=== PATIENT | male | born 1970 | race Hispanic/Latino ===

== ENCOUNTER 2024-01-26 11:41 | Emergency (ER) | payer SELFPAY ==
[2024-01-26 11:44] VITALS: BP 153/95
[2024-01-26 12:18] VITALS: BMI 30.6
[2024-01-26 12:25] VITALS: BP 134/91
--- NOTE | 2024-01-26 12:30 | ED.GENMED ---
History of Present Illness
General
Chief Complaint: Headache
Time Seen by Provider: 01/26/24 12:29
History of Present Illness
History of Present Illness:
HPI: The patient presents with discomfort in his head. He at times describes it as electrical shock sensation in the bitemporal region. He has never had this before. This been ongoing for the last few weeks. He called an eye doctor at [place]
who told him to come to the Emergency Department for further evaluation. He does have some increased discomfort with palpation to the right oriental orthodox. He has no fevers or vision changes. He has no other symptoms.
EXAM:
GENERAL: Well appearing in no distress
HEENT: Moist oral mucosa
HEAD: There is some very mild tenderness to palpation at the right oriental orthodox region
CARDIOVASCULAR: No murmurs, normal heart rate, regular rhythm, No chest wall tenderness
PULMONARY: No respiratory distress, breath sounds are clear and equal
ABDOMEN: Soft with no peritoneal signs, no tenderness
NEUROLOGIC: Excellent strength all extremities, no coordination deficits, no field cuts on exam, no sensory deficits
PSYCHIATRIC: Appropriate mental status, normal insight and judgement
EXTREMITIES: Nontender, no edema, moves all extremities equally
SKIN: No rash, no lesions
TIME OF INITIAL ENCOUNTER: 12:30 PM
NUMBER AND COMPLEXITY OF PROBLEMS ADDRESSED AT THE ENCOUNTER
� Chronic conditions affecting care: Denies any significant past medical history
� Acute Exacerbation and/or Progression of Chronic Illness: This is an acute problem
� Differential Diagnosis includes: Intracranial pathology, doubt CVA as he has a stroke scale of 0, giant cell arteritis, nonspecific headache, migraine headache
AMOUNT AND/OR COMPLEXITY OF DATA TO BE REVIEWED AND ANALYZED
� I performed an independent evaluation of and my interpretation is:
EKG:
CT: CT imaging unremarkable
X-rays:
Laboratory Studies: Sed rate slightly high at 29, otherwise chemistries and CBC relatively unremarkable
Other:
� Review of other/old records: No old records available for review in [facility]
� Clinical information was obtained by an independent historian: None needed
� Prescriptions/Medications Considered but not given:
� Further testing considered but not performed:
RISK OF COMPLICATIONS AND/OR MORBIDITY OR MORTALITY OF PATIENT MANAGEMENT
� Social determinants of health affecting care:No records here, he is from [place]
� Discussion with other providers: I did speak to the PA with vascular to help arrange outpatient follow-up and she stated that he could call for follow-up. I have extremely low suspicion that he truly has giant cell arteritis
though.
� Escalation of care including admission/observation vs risk of discharge considered: Given the new headache, will obtain CT imaging of the brain. Labs including sed rate also obtained. He appears fairly comfortable. Will give
a dose of Tylenol.
Phy Exam
Physical Exam
Physical Exam:
See HPI
Course
Orders/Labs/Results
Orders:
Orders
01/26/24 12:25
CMP [Comprehensive Metabolic Panel] Urgent
Complete Blood Count/With Diff Urgent
Erythrocyte Sed Rate Urgent
Comment: ADD ON
01/26/24 12:32
Add On- LAB Urgent
Tests Added?: esr
01/26/24 12:37
CT Head W/o Iv Contrast Urgent
Comment:
Reason For Exam: new DEWEY
01/26/24 12:38
Acetaminophen [Tylenol] 1,000 mg PO NOW STA
01/26/24 13:06
Ketorolac [Toradol] 15 mg IV NOW STA
Abnormal Lab Results
01/26/24
12:25
WBC 11.4 H 10^3/uL
(4.8-10.8)
Hct 38.8 L %
(39.0-52.0)
RDW 14.8 H %
(11.5-14.5)
Absolute Neuts (auto) 8.1 H 10^3/uL
(1.4-6.5)
Absolute Monos (auto) 0.9 H 10^3/uL
(0.1-0.6)
Lymphocytes % 17.0 L %
(20.5-51.1)
ESR 29 H mm/hour
(0-20)
Glucose 105 H mg/dl
(70-99)
01/26/24 12:25
01/26/24 12:25
Vital Signs
Initial and Last Documented VS:
Initial Vital Signs
Temp Pulse Resp BP Pulse Ox
98.3 F 82 16 153/95 96
01/26/24 11:44 01/26/24 11:44 01/26/24 11:44 01/26/24 11:44 01/26/24 11:44
Last Documented Vital Signs
Temp Pulse Resp BP Pulse Ox
98.3 F 79 18 146/84 97
01/26/24 11:44 01/26/24 14:02 01/26/24 14:02 01/26/24 14:02 01/26/24 13:23
*Critical Care Note
Total Time (30-74mins, 75-104mins- exclusive of procedures): Not Applicable
ED Attending Note
-
Portions of this chart may have been created with voice recognition software.� Occasional wrong word or��sound alike� substitutions may have occurred due to the inherent limitations of voice recognition software.
Discharge Plan
Departure
Patient Disposition: Home (Routine Discharge)
Date of Disposition: 01/26/24
Time of Disposition: 14:48
Patient with high blood pressure during this ER visit?: Yes
Discharge Problem:
Headache
Instructions: Headache, Adult (DC), BLOOD PRESSURE
Referrals:
Bethany Guidry MD [Active] - Follow up in 2-3 days
NONE,* [Family Provider] -
Sourav Bond MD [Active] - Follow up in 2-3 days
Activity Restrictions/Additional Instructions:
The cause of your symptoms is unclear. White blood cell count is mildly elevated at 11.4, sed rate is also minimally elevated at 29 but not to the point that would be consistent with temporal arteritis or giant cell arteritis. Since the sed rate
is slightly elevated, I did speak to the vascular doctors group�I have also given you the contact information to consider following up with them in case they want to do a biopsy of one of the arteries near the surface near your oriental orthodox. I have also
given the contact information for local literary writer. Follow-up your primary care doctor.
Interventions
Interventions:
*Risk Screen - Suicide Last Done: 01/26/24 12:18
*General Assessment Last Done: 01/26/24 12:18
*Neglect/Abuse Screening Last Done: 01/26/24 12:18
ED- Fall Risk Assessment Last Done: 01/26/24 13:23
*ED COVID-19 Vaccine History Last Done: 01/26/24 12:18
ED- Neurological Assessment Last Done: 01/26/24 13:23
Discharge Date and Time
Print Language: WALLISIAN
[2024-01-26] MEDS: TYLENOL 1000 MG PO (12:42)
[2024-01-26 12:46] LABS: % Basophils 0.6 % (0-2); % Eosinophils 3.5 % (0-6); % Immature Granulocytes 0.3 % (0-0.5); % Monocytes 7.4 % (1.7-9.3); % Neutrophils 71.2 % (42.2-75.2); Absolute Basophils 0.1 10^3/uL (0-0.2); Absolute Eosinophils 0.4 10^3/uL (0-0.7); Absolute Monocytes 0.9 10^3/uL (0.1-0.6); Absolute Neutrophils 8.1 10^3/uL (1.4-6.5); Hematocrit 38.8 % (39.0-52.0); Hemoglobin 13.8 g/dL (13.0-18.0); Mean Corp Hgb Conc. 35.6 g/dL (33.0-37.0); Mean Corpuscular Hgb 29.2 pg (27.0-31.0); Mean Platelet Volume 9.8 fL (7.4-10.4); Nucleated Red Blood Cells % 0 % (-); Platelet Count 190 10^3/uL (130-400); Red Blood Cell Count 4.73 10^6/uL (4.70-6.10); Red Cell Dist. Width 14.8 % (11.5-14.5); White Blood Cell Count 11.4 10^3/uL (4.8-10.8)
[2024-01-26 13:13] LABS: ALT (SGPT) 21 U/L (0-50); AST (SGOT) 31 U/L (17-59); Albumin 4.5 g/dl (3.5-5.0); Alkaline Phosphatase 96 U/L (38-126); Blood Urea Nitrogen 10 mg/dl (9-20); Calcium 9.6 mg/dl (8.4-10.2); Carbon Dioxide 23 mmol/L (22-30); Chloride 103 mmol/L (98-107); Estimated Creatinine Clearance > 125 ml/min; Glucose 105 mg/dl (70-99); Potassium 3.9 mmol/L (3.5-5.1); Sodium 138 mmol/L (135-145); Total Bilirubin 0.8 mg/dl (0.2-1.3); Total Protein 7.4 g/dl (6.3-8.2); eGFR > 60.00
[2024-01-26] MEDS: TORADOL 15 MG IV (13:20)
[2024-01-26 13:23] VITALS: BP 129/97
[2024-01-26 13:45] LABS: Erythrocyte Sed Rate 29 mm/hour (0-20)
[2024-01-26 14:02] VITALS: BP 146/84
[2024-01-26 14:58] VITALS: BP 130/90
== END 2024-01-26 15:02 | disposition home or self-care (01) ==
LOC: EMR 11:41
PROVIDERS: Emergency Medicine; EMERGENCY PHYSICIAN Emergency Medicine
DX: R51.9 Headache, unspecified (principal); R79.89 Other specified abnormal findings of blood chemistry
CPT/HCPCS: 96374; 99284; 70450; 80053; 85025; 85652

== ENCOUNTER 2024-07-02 15:26 | Emergency (ER) | payer SELFPAY ==
[2024-07-02 15:29] VITALS: BP 168/108
--- NOTE | 2024-07-02 15:33 | EDRN ---
offered pt ct scan and xray, pt refused both at this time. education provided but pt still refused at this time.
[2024-07-02 18:29] VITALS: BP 162/90
--- NOTE | 2024-07-02 18:50 | ED.GENMED ---
History of Present Illness
General
Chief Complaint: Head Injury
Source: patient
Exam Limitations: none
Time Seen by Provider: 07/02/24 18:11
History of Present Illness
History of Present Illness:
54yoM with no known medical history presenting for evaluation after a fall around 1 PM this afternoon. Patient was working out in his garage and he tripped over uneven cement. He believes he hit the left side of his head against a door. Patient
lost consciousness after the fall. The fall was unwitnessed and he believes he was unconscious for a few seconds. Patient remembers regaining consciousness in the garage but the next thing he remembers is laying in his bed. He does not recall
walking to his bedroom. Patient sustained a laceration above his left eyebrow during the incident. He currently complains of a headache, neck pain, and right shoulder pain. He denies any dizziness, visual changes, vomiting. He denies any
preceding symptoms prior to the fall. He is not taking any blood thinners. Last tetanus was 3 years ago.
Phy Exam
General Physical Exam
General Presentation: well appearing and no apparent distress
General age: appears stated age
General Skin: warm and dry
General Habitus: normal
General Mental: alert
ENT Exam
ENT Exam: other (Jagged 2cm laceration above the L eyebrow with small amount of venous oozing. +hematoma above L eyebrow)
Eye Exam
Eye Exam: PERRL
Pulmonary Exam
Pulmonary Exam: lungs clear, no respiratory distress, no rales, chest non tender, no crackles and no rhonchi
Gastrointestinal Exam
Gastrointestinal Exam: non tender, soft and non distended
Neurological Exam
Neurological Exam: alert
Mccarley Coma Scale
Eye Opening: Spontaneous
Verbal Response: Oriented
Motor Response: Obeys Commands
GCS Total Score: 15
Musculoskeletal Exam
Musculoskeletal Exam: other (R shoulder: No deformity or skin changes. ROM decreased 2/2 pain. 2+ radial pulse. )
Skin Exam
Skin Exam: normal color and warm/dry
Psychiatric Exam
Psychiatric Exam: normal mood/affect
Course
Orders/Labs/Results
Orders:
Orders
07/02/24 18:09
CT Cervical Spine W/o Iv Contr Urgent
Comment:
Reason For Exam: Fall, fontal head strike, +LOC
CT Head W/o Iv Contrast Urgent
Comment:
Reason For Exam: Fall, left eyebrow/frontal head strike. +loc
Shoulder, Right, Trauma [CR Shoulder, Trauma - Right] Urgent
Comment:
Reason For Exam: fall, right shoulder pain
07/02/24 18:47
CT Facial Bones W/o Iv Contras Urgent
Comment:
Reason For Exam: L frontal/maxillary pain s/p fall
Acetaminophen [Tylenol] 1,000 mg PO NOW STA
Vital Signs
Initial and Last Documented VS:
Initial Vital Signs
Temp Pulse Resp BP Pulse Ox
98.2 F 83 20 168/108 100
07/02/24 15:29 07/02/24 15:29 07/02/24 15:29 07/02/24 15:29 07/02/24 15:29
Last Documented Vital Signs
Temp Pulse Resp BP Pulse Ox
98.2 F 80 18 162/90 99
07/02/24 15:29 07/02/24 18:29 07/02/24 18:29 07/02/24 18:29 07/02/24 18:29
Procedures
Laceration Closure
Left Eye brow:
Status of Wound: clean
Size of Wound in cm: 2
Description of Wound Edges: ragged
Preparation: cleaned with saline
Anesthesia: 1% Lidocaine with epi
Revision/Debridement: routine- no revision
Wound exploration: explored to base- no FB
Type of Closure: single layer closure
Skin Closure Material: 6-0 nylon
Number of sutures: 3
MDM/Problems Addressed
Differential Diagnosis Includes:
54yoM here after a mechanical fall this afternoon with head strike. +LOC after the fall. Arrives with a hematoma as well as a laceration above the left eyebrow. C/o headache, neck pain, R shoulder pain. No blood thinners. Patient is mildly
hypertensive with otherwise normal vital signs. He is awake, alert, with a GCS of 15. Differential diagnosis includes but is not limited to: Closed head injury, concussion, intracranial hemorrhage, fracture
Initial ED plan: Check CT head, CT facial bones, CT cervical spine, and right shoulder x-rays. Update Tdap and repair laceration.
*Critical Care Note
Total Time (30-74mins, 75-104mins- exclusive of procedures): Not Applicable
Update Note
Update Note:
Imaging is negative for traumatic injuries. Laceration repaired as above. Patient is stable for discharge. He was advised to follow-up closely with his PCP. Patient instructed to have sutures removed in 5 days. ED return precautions discussed.
Patient in agreement with plan and was discharged in stable condition with his friend.
ED Attending Note
-
Portions of this chart may have been created with voice recognition software.� Occasional wrong word or��sound alike� substitutions may have occurred due to the inherent limitations of voice recognition software.
Discharge Plan
Departure
Patient Disposition: Home (Routine Discharge)
Date of Disposition: 07/02/24
Time of Disposition: 20:35
Patient with high blood pressure during this ER visit?: Yes
Discharge Problem:
Acute head injury with loss of consciousness, Laceration of eyebrow, left, Acute pain of right shoulder
Instructions: Concussion, Adult (DC), Laceration Repair With Stitches (DC)
Referrals:
[facility] [Provider Group]
[facility] [Outside]
NONE,* [Family Provider] -
Activity Restrictions/Additional Instructions:
Apply ice to help with swelling. Take Tylenol and ibuprofen as needed for pain.
Sutures need to be removed in 5 days.
Please follow-up with a primary care provider. Return to the ER with any worsening symptoms or signs of infection.
Interventions
Interventions:
*Risk Screen - Suicide Last Done: 07/02/24 15:29
*General Assessment Last Done: 07/02/24 15:29
*Neglect/Abuse Screening Last Done: 07/02/24 15:29
ED- Fall Risk Assessment Last Done: 07/02/24 19:09
*Nursing Disposition Last Done: 07/02/24 21:52
ED- Neurological Assessment Last Done: 07/02/24 18:17
ED-Skin Assessment Last Done: 07/02/24 18:17
Discharge Date and Time
Discharge Date/Time: 07/02/24 21:53
Print Language: OMANI
[2024-07-02] MEDS: TYLENOL 1000 MG PO (19:04)
== END 2024-07-02 21:53 | disposition home or self-care (01) ==
LOC: EMR 15:26
PROVIDERS: EMERGENCY PHYSICIAN Student in an Organized Health Care Education/Training Program
DX: S06.9X1A Unspecified intracranial injury with loss of consciousness of 30 minutes or less, initial encounter (principal); S01.81XA Laceration without foreign body of other part of head, initial encounter; S00.12XA Contusion of left eyelid and periocular area, initial encounter; R51.9 Headache, unspecified; M54.2 Cervicalgia; M25.511 Pain in right shoulder; W01.198A Fall on same level from slipping, tripping and stumbling with subsequent striking against other object, initial encounter; Y92.008 Other place in unspecified non-institutional (private) residence as the place of occurrence of the external cause; R03.0 Elevated blood-pressure reading, without diagnosis of hypertension; Z88.0 Allergy status to penicillin
CPT/HCPCS: 99284; 12011; 70450; 70486; 72125; 73030